=== PATIENT | male | born 1970 | race Caucasian/White ===

== ENCOUNTER 2021-02-11 07:51 | Day surgery (SDC) | payer BC ==
[~2021-02-11] VITALS: Ht 180.3 cm; Wt 90.3 kg
[2021-02-11] MEDS ORDERED: MONT10T INH (08:31)
[2021-02-11] MEDS ORDERED: Flovent Disku250 MCG INH (08:31)
[2021-02-11] MEDS ORDERED: ATROVENT HFA12.9 GM INH (08:32)
[2021-02-11] MEDS ORDERED: AMLO5 PO (08:33)
[2021-02-11] MEDS ORDERED: ZESTRIL40 M2 PO (08:34)
[2021-02-11] MEDS ORDERED: ATOR40TA PO (08:34)
[2021-02-11] MEDS ORDERED: IBUP800 PO (08:35)
--- NOTE | 2021-02-11 12:22 | NUR ---
02/11/21 1222 MIHAI JIMÉNEZ INGUINAL SUPPORT GIVEN AND PT PUT ON BEFORE DC
== END 2021-02-11 12:16 | disposition home or self-care (01) ==
LOC: ORSCSDS 07:51
PROVIDERS: Surgery
PROC: 0YUA0JZ Supplement Bilateral Inguinal Region with Synthetic Substitute, Open Approach (ICD-10-PCS; principal; 2021-02-11 09:00)
DX: K40.20 Bilateral inguinal hernia, without obstruction or gangrene, not specified as recurrent (principal); I10 Essential (primary) hypertension; J45.909 Unspecified asthma, uncomplicated; Z79.899 Other long term (current) drug therapy
CPT/HCPCS: A9270; C1781; J0690; J1100; J2250; J2370; J2405; J2704; J3010; J7120

== ENCOUNTER → 2021-02-24 | Outpatient (CLI) | payer BC ==
[~2021-02-24] MED LIST: AMLO5 PO; ATOR40TA PO; ATROVENT HFA12.9 GM INH; Flovent Disku250 MCG INH; IBUP800 PO; MONT10T INH; ZESTRIL40 M2 PO
== END | disposition home or self-care (01) ==
LOC: LAB SHORT 11:19
DX: D22.61 Melanocytic nevi of right upper limb, including shoulder (principal)
CPT/HCPCS: 88305

== ENCOUNTER → 2021-04-04 | Outpatient (CLI) | payer BC | END | disposition home or self-care (01) | LOC: LAB SHORT 14:58 | DX: D48.5 Neoplasm of uncertain behavior of skin (principal) | CPT/HCPCS: 88305 ==

== ENCOUNTER → 2021-07-14 | Outpatient (CLI) | payer BC | END | disposition home or self-care (01) | LOC: LAB SHORT 11:22 → PLD 11:22 | DX: D22.5 Melanocytic nevi of trunk (principal); D22.39 Melanocytic nevi of other parts of face | CPT/HCPCS: 88305 ==